=== PATIENT | female | born 1955 | race African-American/Black ===

== ENCOUNTER 2016-05-09 23:26 | Emergency (ER) | payer MEDICARE, MEDICAID ==
[~2016-05-09] VITALS: Ht 165.1 cm; Wt 117.9 kg
[~2016-05-09 23:26] MED LIST: ALPR0.254 PO
[2016-05-10] MEDS ORDERED: IPRATRPIUM/ALBUTEROL 0.5/2.5MG 3 ML NEBU. NEB ONE (00:15)
[2016-05-10] MEDS ORDERED: IBUPROFEN 400 MG TABLET. PO ONE (00:15)
[2016-05-10] MEDS ORDERED: PROAIR HFA8.5 GM INH (00:35)
--- NOTE | 2016-05-10 00:36 | PHYS DOC ---
Past Medical History Past Medical History: Anxiety, Arthritis, Other Additional Past Medical Histor: hx of low potassium Past Surgical History: No Surgical History Alcohol Use: Occasionally Drug Use: None Adult General Chief Complaint Chief Complaint: COUGH HPI HPI Patient is a 60 year old female who presents with dry cough for the past 2 weeks, chills and fever, myalgia, and nighttime shortness of breath for the past 2 days. She also notes bilateral anterior achy chest wall pain with cough for the past 2 days. She has been taking intermittent ibuprofen and Tylenol; her last dose of ibuprofen was yesterday afternoon. She denies palpitations, diaphoresis, exertional symptoms, hemoptysis, leg pain or swelling, abdominal pain, nausea or vomiting. She has had exact same symptoms in the past and diagnosed with bronchitis in which she improved with albuterol inhaler. Review of Systems Review of Systems Constitutional: Has fever and chills [] Eyes: Denies change in visual acuity, redness, or eye pain [] HENT: Denies nasal congestion or sore throat [] Respiratory: Has cough and shortness of breath [] Cardiovascular: No additional information not addressed in HPI [] GI: Denies abdominal pain, nausea, vomiting, bloody stools or diarrhea [] : Denies dysuria or hematuria [] Musculoskeletal: Denies back pain or joint pain [] Integument: Denies rash or skin lesions [] Neurologic: Denies headache, focal weakness or sensory changes [] Endocrine: Denies polyuria or polydipsia [] Current Medications Current Medications Current Medications Medications (Trade) Dose Ordered Sig/Librado Start Time Stop Time Status Last Admin Dose Admin Albuterol/ Ipratropium (Duoneb) 3 ml 1X ONCE 05/10/16 00:15 05/10/16 00:16 DC 05/10/16 00:13 3 ML Ibuprofen (Motrin) 400 mg 1X ONCE 05/10/16 00:15 05/10/16 00:16 DC 05/10/16 00:14 400 MG Allergies Allergies Allergies Coded Allergies Type Severity Reaction Last Updated Verified lisinopril Allergy Severe ANGIOEDEMA 08/07/14 Yes Penicillins Allergy Unknown Rash 07/28/13 Yes Physical Exam Physical Exam Constitutional: Well developed, well nourished, no acute distress, non-toxic appearance. [] HENT: Normocephalic, atraumatic, bilateral external ears normal, oropharynx moist, no oral exudates, nose normal. [] Eyes: PERRLA, EOMI. [] Neck: Normal range of motion, supple, no stridor. [] Cardiovascular:Heart rate regular rhythm, no murmur [] Lungs & Thorax: Minimal wheezing bilaterally with normal respiratory effort, from spastic, [] Abdomen: Bowel sounds normal, soft, no tenderness. [] Skin: Warm, dry, no erythema, no rash. [] Back: No tenderness, no CVA tenderness. [] Extremities: No tenderness, ROM intact, no edema, no palpable cord. [] Neurologic: Alert and oriented X 3, normal motor function, normal sensory function, no focal deficits noted. [] Psychologic: Affect normal, judgement normal, mood normal. [] Current Patient Data Vital Signs Vital Signs Date Time Temp Pulse Resp B/P Pulse Ox O2 Delivery O2 Flow Rate FiO2 05/10/16 00:14 93 Room Air 05/09/16 23:35 98.5 89 22 109/69 98.5 Radiology/Procedures Radiology/Procedures Chest xray as interpreted by me with no acute cardiopulmonary disease process Course & Med Decision Making Course & Med Decision Making Pertinent Labs and Imaging studies reviewed. (See chart for details) She is feeling better after medication. Lungs are clear to auscultation bilaterally. She would like to go home. Will give inhaler for likely viral induced acute bronchitis. Return precautions given. She understands and agrees with plan. Dragon Disclaimer Dragon Disclaimer This electronic medical record was generated, in whole or in part, using a voice recognition dictation system. Departure Departure Impression: Primary Impression: Acute bronchitis Disposition: 01 HOME, SELF-CARE Condition: STABLE Referrals: DIANE COCHRAN MD (PCP) Patient Instructions: Acute Bronchitis, [id number] Additional Instructions: Use albuterol inhaler to help with cough. Follow-up with your primary care doctor within one week. Return for any concerns. Scripts Albuterol Sulfate (Proair Hfa Inhaler)8.5 Gm Hfa.aer.ad2 Puff INH Q4HRS PRN SHORTNESS OF BREATH #1 INHALER Prov:Melany SHERIDAN MD 05/10/16 Problem Qualifiers Primary Impression: Acute bronchitis Bronchitis organism: unspecified organism Qualified Code: J20.9 - Acute bronchitis, unspecified Melany SHERIDAN MD May 10, 2016 00:36
[2016-05-10 00:50] VITALS: BP 89/55
--- NOTE | 2016-05-10 07:32 | RAD ---
2 view CXR: Clinical indications: Cough tonight. Comparison: February 13, 2012. Findings: No acute lung infiltrate or pleural effusion or pulmonary edema or lung mass or pneumothorax is seen. The heart size, pulmonary vasculature, mediastinum and both gerda are unremarkable. The osseous structures appear intact. Impression: No acute radiographic abnormality is seen.
== END 2016-05-10 00:50 | disposition home or self-care (01) ==
LOC: ER 23:26
DX: J20.9 Acute bronchitis, unspecified (principal); R07.89 Other chest pain; M19.90 Unspecified osteoarthritis, unspecified site; Z88.0 Allergy status to penicillin; Z88.8 Allergy status to other drugs, medicaments and biological substances
CPT/HCPCS: 71020; 94250; 94640; 99284; J7620

== ENCOUNTER 2018-05-24 04:50 | Inpatient (IN) | payer OTHER ==
[~2018-05-24] VITALS: Ht 170.2 cm; Wt 112.6 kg
[~2018-05-24 04:50] MED LIST changes: +ALBU2.5V8 INH
[2018-05-24 05:25] LABS: BASO % 1 % (0-3); EOS % 1 % (0-3); HEMATOCRIT 35.5 % (36.0-47.0); HEMOGLOBIN 11.7 g/dL (12.0-15.5); LYMPH # 2.2 x10^3/uL (1.0-4.8); LYMPH % 35 % (24-48); MEAN CORPUSCULAR HEMOGLOBIN 34 pg (25-35); MEAN CORPUSCULAR HGB CONC 33 g/dL (31-37); MEAN CORPUSCULAR VOLUME 104 fL (79-100); MONO # 0.7 x10^3/uL (0.0-1.1); MONO % 11 % (0-9); NEUT # 3.4 x10^3uL (1.8-7.7); NEUT % 53 % (31-73); PLATELET COUNT 188 x10^3/uL (140-400); RED BLOOD COUNT 3.41 x10^6/uL (3.50-5.40); RED CELL DISTRIBUTION WIDTH 17.7 % (11.5-14.5); WHITE BLOOD COUNT 6.3 x10^3/uL (4.0-11.0)
[2018-05-24] MEDS ORDERED: IPRATRPIUM/ALBUTEROL 0.5/2.5MG 3 ML NEBU. NEB ONE (05:30)
[2018-05-24] MEDS ORDERED: methylPREDNISolone SOD SUCC PF 125 MG/2 ML VIAL. IV ONE (05:30)
[2018-05-24] MEDS ORDERED: IV NORMAL SALINE 1000ML BAG 1,000 ML IV SCH (05:30)
[2018-05-24 05:43] LABS: ALBUMIN 2.9 g/dL (3.4-5.0); ALBUMIN/GLOBULIN RATIO 0.7 (1.0-1.7); CALCIUM 8.6 mg/dL (8.5-10.1); CREATININE 0.6 mg/dL (0.6-1.0); MAGNESIUM 1.6 mg/dL (1.8-2.4); POTASSIUM 3.2 mmol/L (3.5-5.1); TOTAL BILIRUBIN 0.3 mg/dL (0.2-1.0); TOTAL PROTEIN 7.1 g/dL (6.4-8.2)
--- NOTE | 2018-05-24 06:00 | PHYS DOC ---
Past Medical History Past Medical History: Anxiety, Arthritis, COPD, Depression, Hypertension, Other Additional Past Medical Histor: hx of low potassium (BRYAN BERNABE Jr., DO) Past Surgical History: (BRYAN BERNABE Jr., DO) Additional Information: / PPD Alcohol Use: Occasionally Drug Use: None (BRYAN BERNABE Jr., DO) Adult General Chief Complaint Chief Complaint: SHORTNESS OF BREATH HPI HPI Patient is a 62-year-old female who presents with complaint of cough, shortness of breath and wheezing that has been going on for the last 4 days. She states that her symptoms are progressively worsening. She reports that she has been taking some Robitussin at home for symptoms but she is just not getting any better. EMS reports that when they had arrived her oxygen saturation had been 88 % on room air. Patient does not wear oxygen at home. EMS had given a breathing treatment and with oxygen her oxygen saturation had come up to 100%. Patient states that she has not been feeling well for quite some time and does admit to some depression but denies any thoughts of harming herself or others. (BRYAN BERNABE Jr. DO) Review of Systems Review of Systems Constitutional: Denies fever or chills [] Respiratory: [place] of cough and shortness of breath [] Cardiovascular: No additional information not addressed in HPI [] GI: Denies abdominal pain, nausea, vomiting or diarrhea [] Musculoskeletal: Denies back pain or joint pain [] Integument: Denies rash or skin lesions [] Neurologic: Denies headache, focal weakness or sensory changes [] All other systems were reviewed and found to be within normal limits, except as documented in this note. (BRYAN BERNABE Jr., DO) Current Medications Current Medications Current Medications Medications (Trade) Dose Ordered Sig/Librado Start Time Stop Time Status Last Admin Dose Admin Albuterol/ Ipratropium (Duoneb) 3 ml 1X ONCE 05/24/18 05:30 05/24/18 05:31 DC 05/24/18 05:35 3 ML Doxycycline Hyclate 100 mg/ Dextrose 100 ml @ 50 mls/hr 1X ONCE 05/24/18 07:30 05/24/18 09:29 DC 05/24/18 09:05 50 MLS/HR Magnesium Sulfate/ Dextrose 100 ml @ 100 mls/hr 1X ONCE 05/24/18 07:30 05/24/18 08:29 DC 05/24/18 07:48 100 MLS/HR Methylprednisolone Sodium Succinate (SOLU-Medrol 125MG VIAL) 125 mg 1X ONCE 05/24/18 05:30 05/24/18 05:31 DC 05/24/18 05:45 125 MG Sodium Chloride 1,000 ml @ 100 mls/hr Q10H 05/24/18 05:30 05/24/18 15:29 05/24/18 05:45 100 MLS/HR (ROLANDO LOGAN MD) Allergies Allergies Allergies Coded Allergies Type Severity Reaction Last Updated Verified lisinopril Allergy Severe ANGIOEDEMA 08/07/14 Yes Penicillins Allergy Unknown Rash 07/28/13 Yes (ROLANDO LOGAN MD) Physical Exam Physical Exam Constitutional: Well developed, well nourished, no acute distress, non-toxic appearance. [] HENT: Normocephalic, atraumatic, bilateral external ears normal, oropharynx moist, no oral exudates, nose normal. [] Eyes: PERRLA, EOMI, conjunctiva normal, no discharge. [] Neck: Normal range of motion, no tenderness, supple. [] Cardiovascular: Regular rate and rhythm[] Lungs & Thorax: Lungs demonstrate coarse rhonchi with some inspiratory and expiratory wheezes bilaterally to auscultation [] Abdomen: Bowel sounds normal, soft, no tenderness. [] Skin: Warm, dry, no erythema, no rash. [] Extremities: No tenderness, no cyanosis, no clubbing, ROM intact. [] Neurologic: Alert and oriented X 3, no focal deficits noted. [] Psychologic: Flattened affect with depressed mood. [] (BRYAN BERNABE Jr. DO) Current Patient Data Vital Signs Vital Signs Date Time Temp Pulse Resp B/P (MAP) Pulse Ox O2 Delivery O2 Flow Rate FiO2 05/24/18 06:34 94 18 99/56 (70) 97 Nasal Cannula 2.0 05/24/18 04:50 98.1 98.1 (ROLANDO LOGAN MD) Lab Values Laboratory Tests Test 05/24/18 05:05 05/24/18 05:53 White Blood Count 6.3 x10^3/uL (4.0-11.0) Red Blood Count 3.41 x10^6/uL (3.50-5.40) L Hemoglobin 11.7 g/dL (12.0-15.5) L Hematocrit 35.5 % (36.0-47.0) L Mean Corpuscular Volume 104 fL (79-100) H Mean Corpuscular Hemoglobin 34 pg (25-35) Mean Corpuscular Hemoglobin Concent 33 g/dL (31-37) Red Cell Distribution Width 17.7 % (11.5-14.5) H Platelet Count 188 x10^3/uL (140-400) Neutrophils (%) (Auto) 53 % (31-73) Lymphocytes (%) (Auto) 35 % (24-48) Monocytes (%) (Auto) 11 % (0-9) H Eosinophils (%) (Auto) 1 % (0-3) Basophils (%) (Auto) 1 % (0-3) Neutrophils # (Auto) 3.4 x10^3uL (1.8-7.7) Lymphocytes # (Auto) 2.2 x10^3/uL (1.0-4.8) Monocytes # (Auto) 0.7 x10^3/uL (0.0-1.1) Eosinophils # (Auto) 0.0 x10^3/uL (0.0-0.7) Basophils # (Auto) 0.0 x10^3/uL (0.0-0.2) Sodium Level 137 mmol/L (136-145) Potassium Level 3.2 mmol/L (3.5-5.1) L Chloride Level 98 mmol/L (98-107) Carbon Dioxide Level 22 mmol/L (21-32) Anion Gap 17 (6-14) H Blood Urea Nitrogen 11 mg/dL (7-20) Creatinine 0.6 mg/dL (0.6-1.0) Estimated GFR (Cockcroft-Gault) 123.0 BUN/Creatinine Ratio 18 (6-20) Glucose Level 84 mg/dL (70-99) Calcium Level 8.6 mg/dL (8.5-10.1) Magnesium Level 1.6 mg/dL (1.8-2.4) L Total Bilirubin 0.3 mg/dL (0.2-1.0) Aspartate Amino Transferase (AST) 116 U/L (15-37) H Alanine Aminotransferase (ALT) 91 U/L (14-59) H Alkaline Phosphatase 119 U/L (46-116) H Creatine Kinase 56 U/L (26-192) NO-Phv-K-Type Natriuretic Peptide 32 pg/mL (0-124) Total Protein 7.1 g/dL (6.4-8.2) Albumin 2.9 g/dL (3.4-5.0) L Albumin/Globulin Ratio 0.7 (1.0-1.7) L Urine Collection Type Unknown Urine Color Yellow Urine Clarity Clear Urine pH 5.0 Urine Specific [place] 1.010 Urine Protein Negative mg/dL (NEG-TRACE) Urine Glucose (UA) Negative mg/dL (NEG) Urine Ketones (Stick) Negative mg/dL (NEG) Urine Blood Negative (NEG) Urine Nitrite Negative (NEG) Urine Bilirubin Negative (NEG) Urine Urobilinogen Dipstick 0.2 mg/dL (0.2 mg/dL) Urine Leukocyte Esterase Negative (NEG) Urine RBC 0 /HPF (0-2) Urine WBC 0 /HPF (0-4) Urine Squamous Epithelial Cells Few /LPF Urine Bacteria 0 /HPF (0-FEW) Laboratory Tests 05/24/18 05:05 Laboratory Tests 05/24/18 05:05 (ROLANDO LOGAN MD) EKG EKG [] Interpretation Time: EKG demonstrates normal sinus rhythm with rate of 92. (BRYAN BERNABE Jr., DO) Radiology/Procedures Radiology/Procedures [] (BRYAN BERNABE Jr., DO) Course & Med Decision Making Course & Med Decision Making Pertinent Labs and Imaging studies reviewed. (See chart for details) Patient moved to room upon arrival was evaluated by ER medical staff after which a workup has been initiated to include blood work, EKG, chest x-ray along with IV fluids and nebulizer treatment. At this time, patient's workup is pending and patient is being signed out to the oncoming ER physician. (BRYAN BERNABE Jr., DO) Course & Med Decision Making - PT HAS HYPOXIA COPD EXACERB CLEAR CXR, CAME IN WITH BEDBUGS D/W RIFFEL STABLE ON NC (ROLANDO LOGAN MD) Dragon Disclaimer Dragon Disclaimer This electronic medical record was generated, in whole or in part, using a voice recognition dictation system. (BRYAN BERNABE Jr., DO) Departure Departure Referrals: DIANE COCHRAN MD (PCP) BRYAN BERNABE Jr. DO May 24, 2018 05:59 ROLANDO LOGAN MD May 24, 2018 09:49
[2018-05-24 06:07] LABS: BILIRUBIN,URINE NEGATIVE (NEG); CLARITY,URINE CLEAR; COLOR,URINE YELLOW; NITRITE,URINE NEGATIVE (NEG); PROTEIN,URINE NEGATIVE (NEG-TRACE); UROBILINOGEN,URINE 0.2 mg/dL (0.2 mg/dL)
[2018-05-24 06:26] LABS: BACTERIA,URINE 0 /HPF (0-FEW); RBC,URINE 0 /HPF (0-2); SQUAMOUS EPITHELIAL CELL,UR FEW /LPF; WBC,URINE 0 /HPF (0-4)
[2018-05-24] MEDS ORDERED: MAGNESIUM SULFATE 1GM 100 ML IV ONE (07:30)
[2018-05-24] MEDS ORDERED: DOXYCYCLINE HYCLATE 100 MG in IV DEXTROSE 5% 100ML 100 ML IV ONE (07:30)
--- NOTE | 2018-05-24 08:34 | RAD ---
Indication:Short of breath. TECHNIQUE:Portable AP chest X-ray COMPARISON:05/09/2016 FINDINGS: Heart is normal in size. Lungs are clear. No pneumothorax or pleural effusion. Visualized bony thorax is within normal limits. IMPRESSION: No acute pulmonary process. Electronically signed by: Kaden Shultz DO (05/24/2018 8:31 AM) [facility]
[2018-05-24] MEDS: IPRATRPIUM/ALBUTEROL 0.5/2.5MG 3 ML NEBU. NEB SCH ×4 (09:27→19:18)
[2018-05-24 11:00] VITALS: BP 113/69
[2018-05-24] MEDS ORDERED: ALPR2TAB5 PO (11:18)
[2018-05-24] MEDS ORDERED: AMLO5TAB10 PO (11:18)
[2018-05-24] MEDS ORDERED: PROAIR IH (11:18)
[2018-05-24] MEDS ORDERED: RANI-348 PO (11:19)
[2018-05-24 11:33] LABS: INFLUENZA A PATIENT NEGATIVE (NEGATIVE); INFLUENZA B PATIENT NEGATIVE (NEGATIVE)
--- NOTE | 2018-05-24 12:32 | NUR ---
The patient, CHRISTY MIRZA, 62 y/o, F admitted by FRANKY ARTEAGA MD, was given written information regarding hospital policies, unit procedures and contact persons. Valuables were checked and pt kept cell phone with her. Oriented to unit and routine.
--- NOTE | 2018-05-24 12:35 | PDOC1 ---
History and Physical Date of Admission Date of Admission DATE: 05/24/18 TIME: 12:30 Identification/Chief Complaint Chief Complaint Shortness of breath Source Source: Chart review, Patient History of Present Illness History of Present Illness 62-year-old female w/ PMHx COPD, anxiety, depression, chronic pain who presents with complaint of cough, shortness of breath and wheezing that has been going on for the last 4 days. She states that her symptoms are progressively worsening. She reports that she has been taking some Robitussin at home for symptoms but she is just not getting any better. EMS reports that when they had arrived her oxygen saturation had been 88% on room air. Patient does not wear oxygen at home. EMS had given a breathing treatment and with oxygen her oxygen saturation had come up to 100%. Patient states that she has not been feeling well for quite some time and does admit to some depression but denies any thoughts of harming herself or others. Things got worse last night after she went to her grandson's birthday green party and drank 4 wine coolers. She tells me she has difficulty navigating stairs. Past Medical History Cardiovascular: No pertinent hx Pulmonary: COPD GI: No pertinent hx Heme/Onc: No pertinent hx Hepatobiliary: No pertinent hx Psych: Anxiety Musculoskeletal: low back pain Rheumatologic: No pertinent hx Infectious disease: No pertinent hx ENT: No pertinent hx Renal/: No pertinent hx Endocrine: No pertinent hx Dermatology: No pertinent hx Past Surgical History Past Surgical History: Tubal Ligation Family History Family History: Asthma, Hypertension Social History Smoke: Quit (03/2018, quit) ALCOHOL: rare Drugs: None Current Problem List Problem List Problems Medical Problems: (1) COPD exacerbation Status: Acute Current Medications Current Medications Current Medications Sodium Chloride 1,000 ml @ 100 mls/hr Q10H IV Last administered on 05/24/18at 05:45; Start 05/24/18 at 05:30; Stop 05/24/18 at 15:29 Albuterol/ Ipratropium (Duoneb) 3 ml 1X ONCE NEB Last administered on at 05:35; Start 05/24/18 at 05:30; Stop 05/24/18 at 05:31; Status DC Methylprednisolone Sodium Succinate (SOLU-Medrol 125MG VIAL) 125 mg 1X ONCE IV Last administered on 05/24/18at 05:45; Start 05/24/18 at 05:30; Stop 05/24/18 at 05:31; Status DC Magnesium Sulfate/ Dextrose 100 ml @ 100 mls/hr 1X ONCE IV Last administered on 05/24/18at 07:48; Start 05/24/18 at 07:30; Stop 05/24/18 at 08:29; Status DC Doxycycline Hyclate 100 mg/ Dextrose 100 ml @ 50 mls/hr 1X ONCE IV Last administered on 05/24/18at 09:05; Start 05/24/18 at 07:30; Stop 05/24/18 at 09:29 ; Status DC Albuterol/ Ipratropium (Duoneb) 3 ml RTQID NEB Last administered on 05/24/18at 09:27; Start 05/24/18 at 08:00; Stop 05/25/18 at 07:59 Active Scripts Active Proair Hfa Inhaler (Albuterol Sulfate) 8.5 Gm Hfa.aer.ad 2 Puff INH Q4HRS PRN Alprazolam 0.25 Mg Tablet 0.25 Mg PO PRN Q6HRS PRN Reported Ranitidine Hcl 75 Mg Tablet 75 Mg PO DAILY Alprazolam 2 Mg Tablet 2 Mg PO BID PRN [Proair] 1 Spr IH DAILY Amlodipine Besylate 5 Mg Tablet 5 Mg PO DAILY Allergies Allergies: Coded Allergies: lisinopril (Verified Allergy, Severe, ANGIOEDEMA, 08/07/14) Penicillins (Verified Allergy, Unknown, Rash, 07/28/13) ROS General: YES: Fatigue, Malaise, Appetite PSYCHOLOGICAL ROS: YES: Anxiety; No: Behavioral Disorder, Concentration difficultie, Decreased libido, Depression, Disorientation, Hallucinations, Hostility, Irritablity, Memory difficulties, Mood Swings, Obsessive thoughts, Physical abuse, Sexual abuse, Sleep disturbances, Suicidal ideation, Other Eyes: No Blurry vision, No Decreased vision, No Double vision, No Dry eyes, No Excessive tearing, No Eye Pain, No Itchy Eyes, No Loss of vision, No Photophobia , No Scotomata, No Uses contacts, No Uses glasses, No Other HEENT: No: Heacaches, Visual Changes, Hearing change, Nasal congestion, Nasal discharge, Oral lesions, Sinus pain, Sore Throat, Epistaxis, Sneezing, Snoring, Tinnitus, Vertigo, Vocal changes, Other ALLERGY AND IMMUNOLOGY: No: Hives, Insect Bite Sensitivity, Itchy/Watery Eyes, Nasal Congestion, Post Nasal Drip, Seasonal Allergies, Other Hematological and Lymphatic: No: Bleeding Problems, Blood Clots, Blood Transfusions, Brusing, Night Sweats, Pallor, Swollen Lymph Nodes, Other ENDOCRINE: No: Breast Changes, Galactorrhea, Hair Pattern Changes, Hot Flashes , Malaise/lethargy, Mood Swings, Palpitations, Polydipsia/polyuria, Skin Changes , Temperature Intolerance, Unexpected Weight Changes, Other Breast: No New/Changing Breast Lumps, No Nipple changes, No Nipple discharge, No Other Respiratory: YES: Cough, Shortness of breath, SOB with excertion, Tachypnea, Wheezing; No: Hemoptysis, Orthopnea, Pleuritic Pain, Sputum Changes, Stridor, Other Cardiovascular: No Chest Pain, No Palpitations, No Orthopnea, No Paroxysmal Noc. Dyspnea, No Edema, No Lt Headedness, No Other Gastrointestinal: Yes Nausea; No Vomiting, No Abdominal Pain, No Diarrhea, No Constipation, No Melena, No Hematochezia, No Other Genitourinary: No Dysuria, No Frequency, No Incontinence, No Hematuria, No Retention, No Discharge, No Urgency, No Pain, No Flank Pain, No Other, No , No , No , No , No , No , No Musculoskeletal: No Gait Disturbance, No Joint Pain, No Joint Stiffness, No Joint Swelling, No Muscle Pain, No Muscular Weakness, No Pain In:, No Swelling In:, No Other Neurological: No Behavorial Changes, No Bowel/Bladder ControlChng, No Confusion , No Dizziness, No Gait Disturbance, No Headaches, No Impaired Coord/balance, No Memory Loss, No Numbness/Tingling, No Seizures, No Speech Problems, No Tremors, No Visual Changes, No Weakness, No Other Skin: No Dry Skin, No Eczema, No Hair Changes, No Lumps, No Mole Changes, No Mottling, No Nail Changes, No Pruritus, No Rash, No Skin Lesion Changes, No Other, No Acne Physical Exam General: Alert, Oriented X3, Cooperative, No acute distress HEENT: Atraumatic, PERRLA, EOMI, Mucous membr. moist/pink Lungs: Clear to auscultation, Normal air movement Heart: S1S2, RRR, no gallops Abdomen: Normal bowel sounds, Soft, No tenderness, No hepatosplenomegaly, No masses Rectal Exam: not examined Extremities: No clubbing, No cyanosis, No edema, Normal pulses, No tenderness/ swelling Skin: No rashes, No breakdown, No significant lesion Neuro: Normal speech, Strength at 5/5 X4 ext, Normal tone, Sensation intact, Cranial nerves 3-12 NL, Reflexes 2+ Psych/Mental Status: Mental status NL, Mood NL Vitals Vitals Vital Signs Date Time Temp Pulse Resp B/P (MAP) Pulse Ox O2 Delivery O2 Flow Rate FiO2 05/24/18 11:00 96.8 101 20 113/69 (84) 96 Nasal Cannula 2.0 96.8 Labs Labs Laboratory Tests Test 05/24/18 05:05 05/24/18 05:53 05/24/18 07:50 White Blood Count 6.3 x10^3/uL (4.0-11.0) Red Blood Count 3.41 x10^6/uL (3.50-5.40) Hemoglobin 11.7 g/dL (12.0-15.5) Hematocrit 35.5 % (36.0-47.0) Mean Corpuscular Volume 104 fL (79-100) Mean Corpuscular Hemoglobin 34 pg (25-35) Mean Corpuscular Hemoglobin Concent 33 g/dL (31-37) Red Cell Distribution Width 17.7 % (11.5-14.5) Platelet Count 188 x10^3/uL (140-400) Neutrophils (%) (Auto) 53 % (31-73) Lymphocytes (%) (Auto) 35 % (24-48) Monocytes (%) (Auto) 11 % (0-9) Eosinophils (%) (Auto) 1 % (0-3) Basophils (%) (Auto) 1 % (0-3) Neutrophils # (Auto) 3.4 x10^3uL (1.8-7.7) Lymphocytes # (Auto) 2.2 x10^3/uL (1.0-4.8) Monocytes # (Auto) 0.7 x10^3/uL (0.0-1.1) Eosinophils # (Auto) 0.0 x10^3/uL (0.0-0.7) Basophils # (Auto) 0.0 x10^3/uL (0.0-0.2) Sodium Level 137 mmol/L (136-145) Potassium Level 3.2 mmol/L (3.5-5.1) Chloride Level 98 mmol/L (98-107) Carbon Dioxide Level 22 mmol/L (21-32) Anion Gap 17 (6-14) Blood Urea Nitrogen 11 mg/dL (7-20) Creatinine 0.6 mg/dL (0.6-1.0) Estimated GFR (Cockcroft-Gault) 123.0 BUN/Creatinine Ratio 18 (6-20) Glucose Level 84 mg/dL (70-99) Calcium Level 8.6 mg/dL (8.5-10.1) Magnesium Level 1.6 mg/dL (1.8-2.4) Total Bilirubin 0.3 mg/dL (0.2-1.0) Aspartate Amino Transf (AST/SGOT) 116 U/L (15-37) Alanine Aminotransferase (ALT/SGPT) 91 U/L (14-59) Alkaline Phosphatase 119 U/L (46-116) Creatine Kinase 56 U/L (26-192) TE-Wpr-L-Type Natriuretic Peptide 32 pg/mL (0-124) Total Protein 7.1 g/dL (6.4-8.2) Albumin 2.9 g/dL (3.4-5.0) Albumin/Globulin Ratio 0.7 (1.0-1.7) Urine Collection Type Unknown Urine Color Yellow Urine Clarity Clear Urine pH 5.0 Urine Specific [place] 1.010 Urine Protein Negative mg/dL (NEG-TRACE) Urine Glucose (UA) Negative mg/dL (NEG) Urine Ketones (Stick) Negative mg/dL (NEG) Urine Blood Negative (NEG) Urine Nitrite Negative (NEG) Urine Bilirubin Negative (NEG) Urine Urobilinogen Dipstick 0.2 mg/dL (0.2 mg/dL) Urine Leukocyte Esterase Negative (NEG) Urine RBC 0 /HPF (0-2) Urine WBC 0 /HPF (0-4) Urine Squamous Epithelial Cells Few /LPF Urine Bacteria 0 /HPF (0-FEW) Influenza Type A Antigen Negative (NEGATIVE) Influenza Type B Antigen Negative (NEGATIVE) Laboratory Tests Test 05/24/18 05:05 05/24/18 05:53 05/24/18 07:50 White Blood Count 6.3 x10^3/uL (4.0-11.0) Red Blood Count 3.41 x10^6/uL (3.50-5.40) Hemoglobin 11.7 g/dL (12.0-15.5) Hematocrit 35.5 % (36.0-47.0) Mean Corpuscular Volume 104 fL (79-100) Mean Corpuscular Hemoglobin 34 pg (25-35) Mean Corpuscular Hemoglobin Concent 33 g/dL (31-37) Red Cell Distribution Width 17.7 % (11.5-14.5) Platelet Count 188 x10^3/uL (140-400) Neutrophils (%) (Auto) 53 % (31-73) Lymphocytes (%) (Auto) 35 % (24-48) Monocytes (%) (Auto) 11 % (0-9) Eosinophils (%) (Auto) 1 % (0-3) Basophils (%) (Auto) 1 % (0-3) Neutrophils # (Auto) 3.4 x10^3uL (1.8-7.7) Lymphocytes # (Auto) 2.2 x10^3/uL (1.0-4.8) Monocytes # (Auto) 0.7 x10^3/uL (0.0-1.1) Eosinophils # (Auto) 0.0 x10^3/uL (0.0-0.7) Basophils # (Auto) 0.0 x10^3/uL (0.0-0.2) Sodium Level 137 mmol/L (136-145) Potassium Level 3.2 mmol/L (3.5-5.1) Chloride Level 98 mmol/L (98-107) Carbon Dioxide Level 22 mmol/L (21-32) Anion Gap 17 (6-14) Blood Urea Nitrogen 11 mg/dL (7-20) Creatinine 0.6 mg/dL (0.6-1.0) Estimated GFR (Cockcroft-Gault) 123.0 BUN/Creatinine Ratio 18 (6-20) Glucose Level 84 mg/dL (70-99) Calcium Level 8.6 mg/dL (8.5-10.1) Magnesium Level 1.6 mg/dL (1.8-2.4) Total Bilirubin 0.3 mg/dL (0.2-1.0) Aspartate Amino Transf (AST/SGOT) 116 U/L (15-37) Alanine Aminotransferase (ALT/SGPT) 91 U/L (14-59) Alkaline Phosphatase 119 U/L (46-116) Creatine Kinase 56 U/L (26-192) AH-Bin-D-Type Natriuretic Peptide 32 pg/mL (0-124) Total Protein 7.1 g/dL (6.4-8.2) Albumin 2.9 g/dL (3.4-5.0) Albumin/Globulin Ratio 0.7 (1.0-1.7) Urine Collection Type Unknown Urine Color Yellow Urine Clarity Clear Urine pH 5.0 Urine Specific [place] 1.010 Urine Protein Negative mg/dL (NEG-TRACE) Urine Glucose (UA) Negative mg/dL (NEG) Urine Ketones (Stick) Negative mg/dL (NEG) Urine Blood Negative (NEG) Urine Nitrite Negative (NEG) Urine Bilirubin Negative (NEG) Urine Urobilinogen Dipstick 0.2 mg/dL (0.2 mg/dL) Urine Leukocyte Esterase Negative (NEG) Urine RBC 0 /HPF (0-2) Urine WBC 0 /HPF (0-4) Urine Squamous Epithelial Cells Few /LPF Urine Bacteria 0 /HPF (0-FEW) Influenza Type A Antigen Negative (NEGATIVE) Influenza Type B Antigen Negative (NEGATIVE) Images Images CXR - No acute pulmonary process. VTE Prophylaxis Ordered VTE Prophylaxis Devices: No VTE Pharmacological Prophylaxi: Yes Assessment/Plan Assessment/Plan A/P: COPD exacerbation - initially starting to improve with nebs, will continue Hypoxia - improved O2 sats after nebulizer treatments Transaminitis - likely related to drinking last night. IVF for now Anxiety - cont home xanax Difficulty with ambulation - PT to see Smoker in remission - cont positive counseling Depression - cont home meds Chronic pain - heating pads, lidocaine patch if necessary Hypokalemia- replace Hypomagnesemia - replace IV Anemia - unknown etiology, check iron FEN - General diet PPX - lovenox FULL CODE Inpatient for acute COPD exacerbation, likely 2 midnights FRANKY ARTEAGA MD May 24, 2018 12:35
[2018-05-24] MEDS ORDERED: IBUP-577 PO (13:12)
[2018-05-24] MEDS ORDERED: FLUT1DIS3 IH (13:12)
[2018-05-24] MEDS ORDERED: TIOT18CA IH (13:12)
[2018-05-24] MEDS ORDERED: ALBUTEROL SULFATE 2.5 MG/3 ML NEBU. INH PRN (13:15)
[2018-05-24] MEDS: ALPRAZolam 1 MG TABLET PO PRN ×2 (13:21→20:45)
[2018-05-24] MEDS: amLODIPine BESYLATE 5 MG TABLET PO SCH (13:22)
[2018-05-24] MEDS ORDERED: POTASSIUM CHLORIDE 20 MEQ TABLET.ER. PO ONE (14:15)
--- NOTE | 2018-05-24 14:48 | EKG ---
[facility] [address] [place] [address] Test Date: 2018-05-24 Test Time: 05:44:24 Pat Name: CHRISTY MIRZA Department: Room: 506 Gender: F Gate Attendant: : 1955 Requested By: BRYAN BERNABE Order Number: [id number] Reading MD: Chidi Abarca Measurements Intervals [place] Rate: 92 P: -56 MI: 120 QRS: 54 QRSD: 80 T: 49 QT: 364 QTc: 455 Interpretive Statements SINUS RHYTHM NO SPECIFIC ECG ABNORMALITIES Electronically Signed On 06-03-2018 10:35:45 DOCUMENTATION MANAGER by Chidi Abarca
[2018-05-24 15:00] VITALS: BP 104/70
[2018-05-24] MEDS: ENOXAPARIN 40 MG/0.4 ML SYRINGE. SQ SCH (15:00)
[2018-05-24 19:00] VITALS: BP 144/86
[2018-05-24] MEDS: BUDESONIDE 0.5 MG/2 ML NEBU. NEB SCH (19:18)
[2018-05-24] MEDS: FAMOTIDINE 20 MG TABLET. PO SCH (20:36)
[2018-05-24 23:00] VITALS: BP_SYST 106; BP_SYST 119; BP_DIAS 38; BP_DIAS 63
[2018-05-25 03:00] VITALS: BP 108/72
[2018-05-25 07:00] VITALS: BP 141/82
[2018-05-25] MEDS: BUDESONIDE 0.5 MG/2 ML NEBU. NEB SCH ×2 (07:26→19:04)
[2018-05-25] MEDS: IPRATRPIUM/ALBUTEROL 0.5/2.5MG 3 ML NEBU. NEB SCH ×4 (07:26→19:04)
[2018-05-25] MEDS: FAMOTIDINE 20 MG TABLET. PO SCH ×2 (08:49→21:53)
[2018-05-25] MEDS: amLODIPine BESYLATE 5 MG TABLET PO SCH (08:49)
[2018-05-25] MEDS: ALPRAZolam 1 MG TABLET PO PRN ×2 (08:50→22:03)
[2018-05-25] MEDS ORDERED: PROAIR IH SCH (09:00)
[2018-05-25] MEDS: ENOXAPARIN 40 MG/0.4 ML SYRINGE. SQ SCH (13:40)
--- NOTE | 2018-05-25 14:19 | PDOC ---
PROGRESS NOTES Chief Complaint Chief Complaint acute COPD exacerbation - improved, Hypoxia - improved O2 sats after nebulizer treatments Transaminitis - likely related to drinking last night. IVF for now Anxiety - cont home xanax Difficulty with ambulation - PT to see Smoker in remission - cont positive counseling Depression - cont home meds Chronic pain - heating pads, lidocaine patch if necessary Hypokalemia- replace Hypomagnesemia - replace IV Anemia - unknown etiology, check iron History of Present Illness History of Present Illness consult pulm PT and OT weakness check TSH, likely acquired, refer to CP rehab Vitals Vitals Vital Signs Date Time Temp Pulse Resp B/P (MAP) Pulse Ox O2 Delivery O2 Flow Rate FiO2 05/25/18 11:35 Nasal Cannula 2.0 05/25/18 08:49 85 108/72 05/25/18 07:26 95 05/25/18 07:00 97.8 20 97.8 Physical Exam General: Alert, Oriented X3, Cooperative, No acute distress Heart: Regular rate, Other Lungs: Other (rales, low vol, no wheeze, good effort) Abdomen: Normal bowel sounds, Soft, No tenderness, No hepatosplenomegaly, No masses Extremities: No clubbing, No cyanosis, No edema, Normal pulses, No tenderness/ swelling Skin: No rashes, No breakdown, No significant lesion Labs LABS Laboratory Tests Test 05/24/18 15:15 Iron Level 60 ug/dL (50-170) Total Iron Binding Capacity 254 ug/dL (250-450) Iron Saturation 24 % (15-34) Assessment and Plan Assessmemt and Plan Problems Medical Problems: (1) COPD exacerbation Status: Acute Comment Review of Relevant I have reviewed the following items bartolo (where applicable) has been applied. Labs Laboratory Tests Test 05/24/18 05:05 05/24/18 05:53 05/24/18 07:50 05/24/18 15:15 White Blood Count 6.3 x10^3/uL (4.0-11.0) Red Blood Count 3.41 x10^6/uL (3.50-5.40) Hemoglobin 11.7 g/dL (12.0-15.5) Hematocrit 35.5 % (36.0-47.0) Mean Corpuscular Volume 104 fL (79-100) Mean Corpuscular Hemoglobin 34 pg (25-35) Mean Corpuscular Hemoglobin Concent 33 g/dL (31-37) Red Cell Distribution Width 17.7 % (11.5-14.5) Platelet Count 188 x10^3/uL (140-400) Neutrophils (%) (Auto) 53 % (31-73) Lymphocytes (%) (Auto) 35 % (24-48) Monocytes (%) (Auto) 11 % (0-9) Eosinophils (%) (Auto) 1 % (0-3) Basophils (%) (Auto) 1 % (0-3) Neutrophils # (Auto) 3.4 x10^3uL (1.8-7.7) Lymphocytes # (Auto) 2.2 x10^3/uL (1.0-4.8) Monocytes # (Auto) 0.7 x10^3/uL (0.0-1.1) Eosinophils # (Auto) 0.0 x10^3/uL (0.0-0.7) Basophils # (Auto) 0.0 x10^3/uL (0.0-0.2) Sodium Level 137 mmol/L (136-145) Potassium Level 3.2 mmol/L (3.5-5.1) Chloride Level 98 mmol/L (98-107) Carbon Dioxide Level 22 mmol/L (21-32) Anion Gap 17 (6-14) Blood Urea Nitrogen 11 mg/dL (7-20) Creatinine 0.6 mg/dL (0.6-1.0) Estimated GFR (Cockcroft-Gault) 123.0 BUN/Creatinine Ratio 18 (6-20) Glucose Level 84 mg/dL (70-99) Calcium Level 8.6 mg/dL (8.5-10.1) Magnesium Level 1.6 mg/dL (1.8-2.4) Total Bilirubin 0.3 mg/dL (0.2-1.0) Aspartate Amino Transf (AST/SGOT) 116 U/L (15-37) Alanine Aminotransferase (ALT/SGPT) 91 U/L (14-59) Alkaline Phosphatase 119 U/L (46-116) Creatine Kinase 56 U/L (26-192) XU-Bzk-V-Type Natriuretic Peptide 32 pg/mL (0-124) Total Protein 7.1 g/dL (6.4-8.2) Albumin 2.9 g/dL (3.4-5.0) Albumin/Globulin Ratio 0.7 (1.0-1.7) Urine Collection Type Unknown Urine Color Yellow Urine Clarity Clear Urine pH 5.0 Urine Specific [place] 1.010 Urine Protein Negative mg/dL (NEG-TRACE) Urine Glucose (UA) Negative mg/dL (NEG) Urine Ketones (Stick) Negative mg/dL (NEG) Urine Blood Negative (NEG) Urine Nitrite Negative (NEG) Urine Bilirubin Negative (NEG) Urine Urobilinogen Dipstick 0.2 mg/dL (0.2 mg/dL) Urine Leukocyte Esterase Negative (NEG) Urine RBC 0 /HPF (0-2) Urine WBC 0 /HPF (0-4) Urine Squamous Epithelial Cells Few /LPF Urine Bacteria 0 /HPF (0-FEW) Influenza Type A Antigen Negative (NEGATIVE) Influenza Type B Antigen Negative (NEGATIVE) Iron Level 60 ug/dL (50-170) Total Iron Binding Capacity 254 ug/dL (250-450) Iron Saturation 24 % (15-34) Laboratory Tests Test 05/24/18 15:15 Iron Level 60 ug/dL (50-170) Total Iron Binding Capacity 254 ug/dL (250-450) Iron Saturation 24 % (15-34) Microbiology 05/24/18 Blood Culture - Final, Complete Medications Current Medications Sodium Chloride 1,000 ml @ 100 mls/hr Q10H IV Last administered on 05/24/18at 05:45; Start 05/24/18 at 05:30; Stop 05/24/18 at 15:29; Status DC Albuterol/ Ipratropium (Duoneb) 3 ml 1X ONCE NEB Last administered on at 05:35; Start 05/24/18 at 05:30; Stop 05/24/18 at 05:31; Status DC Methylprednisolone Sodium Succinate (SOLU-Medrol 125MG VIAL) 125 mg 1X ONCE IV Last administered on 05/24/18at 05:45; Start 05/24/18 at 05:30; Stop 05/24/18 at 05:31; Status DC Magnesium Sulfate/ Dextrose 100 ml @ 100 mls/hr 1X ONCE IV Last administered on 05/24/18at 07:48; Start 05/24/18 at 07:30; Stop 05/24/18 at 08:29; Status DC Doxycycline Hyclate 100 mg/ Dextrose 100 ml @ 50 mls/hr 1X ONCE IV Last administered on 05/24/18at 09:05; Start 05/24/18 at 07:30; Stop 05/24/18 at 09:29 ; Status DC Albuterol/ Ipratropium (Duoneb) 3 ml RTQID NEB Last administered on 05/24/18at 09:27; Start 05/24/18 at 08:00; Stop 05/24/18 at 13:17; Status DC Albuterol Sulfate (Ventolin Neb Soln) 2.5 mg Q4HRS PRN INH SHORTNESS OF BREATH ; Start 05/24/18 at 13:15 Alprazolam (Xanax) 2 mg PRN BID PRN PO ANXIETY / AGITATION Last administered on 05/25/18at 08:50; Start 05/24/18 at 13:15 Amlodipine Besylate (Norvasc) 5 mg DAILY PO Last administered on 05/25/18 08: 49; Start 05/24/18 at 14:00 Famotidine (Pepcid) 20 mg BID PO Last administered on 05/25/18at 08:49; Start at 21:00 Budesonide (Pulmicort) 0.5 mg RTBID NEB Last administered on 05/25/18 07:26; Start 05/24/18 at 20:00 Albuterol/ Ipratropium (Duoneb) 3 ml RTQID NEB Last administered on 05/25/18at 11:35; Start 05/24/18 at 16:00 Non-Formulary Medication ([Proair] ) 1 spr DAILY IH ; Start 05/25/18 at 09:00; Status UNV Enoxaparin Sodium (Lovenox 40mg Syringe) 40 mg Q24H SQ ; Start 05/24/18 at 15:00 Potassium Chloride (Klor-Con) 40 meq 1X ONCE PO Last administered on at 17:51; Start 05/24/18 at 14:15; Stop 05/24/18 at 14:16; Status DC Active Scripts Active Proair Hfa Inhaler (Albuterol Sulfate) 8.5 Gm Hfa.aer.ad 2 Puff INH Q4HRS PRN Alprazolam 0.25 Mg Tablet 0.25 Mg PO PRN Q6HRS PRN Reported Ibu (Ibuprofen) 800 Mg Tablet 800 Mg PO BID PRN Advair 250-50 Diskus (Fluticasone/Salmeterol) 1 Each Disk.w.dev 1 Puff IH DAILY Spiriva (Tiotropium [place]) 18 Mcg Cap.w.dev 18 Mcg IH DAILY Ranitidine Hcl 75 Mg Tablet 75 Mg PO DAILY Alprazolam 2 Mg Tablet 2 Mg PO BID PRN [Proair] 1 Spr IH DAILY Amlodipine Besylate 5 Mg Tablet 5 Mg PO DAILY Vitals/I & O Vital Sign - Last 24 Hours 05/24/18 05/24/18 05/24/18 05/24/18 15:00 16:22 16:26 19:00 Temp 98.8 98.6 98.8 98.6 Pulse 119 109 Resp 20 20 B/P (MAP) 104/70 (81) 144/86 (105) Pulse Ox 92 89 98 O2 Delivery Nasal Cannula Room Air Nasal Cannula Nasal Cannula O2 Flow Rate 2.0 2.0 2.0 05/24/18 05/24/18 05/24/18 05/24/18 19:19 19:20 20:00 23:00 Temp 98.6 98.6 Pulse 94 Resp 20 B/P (MAP) 106/63 (77) Pulse Ox 96 O2 Delivery Room Air Room Air Nasal Cannula Nasal Cannula O2 Flow Rate 2.0 2.0 05/25/18 05/25/18 05/25/18 05/25/18 03:00 07:00 07:26 08:00 Temp 97.5 97.8 97.5 97.8 Pulse 85 98 Resp 20 20 B/P (MAP) 108/72 (84) 141/82 (101) Pulse Ox 97 96 95 O2 Delivery Nasal Cannula Nasal Cannula Nasal Cannula Nasal Cannula O2 Flow Rate 2.0 2.0 2.0 2.0 05/25/18 05/25/18 08:49 11:35 Pulse 85 B/P (MAP) 108/72 O2 Delivery Nasal Cannula O2 Flow Rate 2.0 Intake and Output 05/24/18 05/24/18 05/25/18 15:00 23:00 07:00 Intake Total 460 ml 300 ml 0 ml Balance 460 ml 300 ml 0 ml SILVERIO DUMONT MD May 25, 2018 14:19
[2018-05-25 15:00] VITALS: BP 124/76
[2018-05-25] MEDS ORDERED: MAGNESIUM SULFATE 4GM 100 ML IV ONE (15:00)
[2018-05-25] MEDS: VITAMIN B12,B9,B6 COMPLEX 1 TABLET. PO SCH (15:58)
[2018-05-25] MEDS ORDERED: VANCOMYCIN 2 GM in IV NORMAL SALINE 500ML BAG 500 ML IV ONE (16:30)
[2018-05-25] MEDS: AZTREONAM IV Push 1 GM VIAL. IVP SCH ×2 (16:52→21:54)
[2018-05-25] MEDS: VANCOMYCIN PER PHARMACY MC PRN (18:47)
--- NOTE | 2018-05-25 18:50 | NUR ---
Pharmacy Vancomycin Dosing Note S:Consulted to monitor and dose vancomycin started 05/25/18. O:CHRISTY MIRZA is a 62 year old F with Bacteremia . Height: 5 feet, 7 inches Weight: 113.4 kg [place] Body Weight: 61.60 Adjusted Body Weight: 82.32 Dosing Weight: Actual Other Antibiotics: Aztreonam 1g q8h LABS: Last BUN: 11 Last Creatinine: 0.6 Creatinine Clearance: >100 mL/min Last WBC: 6.3 Last Procalcitonin: Tmax (past 24 hours): 98.1 Microbiology: Blood: GPC in clusters in 2/2 bottles I/O: 760/- Last dose given 05/25/18 at 1653 Vancomycin Dosing: Loading Dose: 2000 mg x1 Dosing Weight: Actual Target Trough: 15-20 A: Based on: weight and renal function P: 1. Begin Vancomycin 1500 mg IV q12h 2. Follow up Trough level on 05/27/18 at 0430 3. Pharmacy will continue to monitor, follow and adjust therapy as needed. Any Martino [facility], 05/25/18 [id number]
[2018-05-25 19:00] VITALS: BP 105/56
[2018-05-25] MEDS: oxyCODONE/APAP 5/325 1 TAB TABLET PO PRN (21:55)
[2018-05-25 23:00] VITALS: BP 100/59
[2018-05-26 03:00] VITALS: BP 101/68
[2018-05-26] MEDS ORDERED: VANCOMYCIN 1.5 GM in IV NORMAL SALINE 500ML BAG 500 ML IV SCH (05:00)
[2018-05-26] MEDS: AZTREONAM IV Push 1 GM VIAL. IVP SCH ×2 (06:18→13:57)
[2018-05-26 06:39] LABS: ALBUMIN 2.9 g/dL (3.4-5.0); ALBUMIN/GLOBULIN RATIO 0.7 (1.0-1.7); CALCIUM 8.2 mg/dL (8.5-10.1); CREATININE 0.7 mg/dL (0.6-1.0); GFR 102.9; POTASSIUM 4.1 mmol/L (3.5-5.1); TOTAL BILIRUBIN 0.3 mg/dL (0.2-1.0); TOTAL PROTEIN 6.9 g/dL (6.4-8.2)
[2018-05-26 06:57] LABS: BASO % 0 % (0-3); EOS % 0 % (0-3); HEMATOCRIT 35.1 % (36.0-47.0); HEMOGLOBIN 11.3 g/dL (12.0-15.5); LYMPH # 1.3 x10^3/uL (1.0-4.8); LYMPH % 25 % (24-48); MEAN CORPUSCULAR HEMOGLOBIN 34 pg (25-35); MEAN CORPUSCULAR HGB CONC 32 g/dL (31-37); MEAN CORPUSCULAR VOLUME 105 fL (79-100); MONO # 0.5 x10^3/uL (0.0-1.1); MONO % 10 % (0-9); NEUT # 3.5 x10^3uL (1.8-7.7); NEUT % 65 % (31-73); PLATELET COUNT 176 x10^3/uL (140-400); RED BLOOD COUNT 3.34 x10^6/uL (3.50-5.40); RED CELL DISTRIBUTION WIDTH 18.5 % (11.5-14.5); WHITE BLOOD COUNT 5.4 x10^3/uL (4.0-11.0)
[2018-05-26 07:00] VITALS: BP 115/69
[2018-05-26] MEDS: IPRATRPIUM/ALBUTEROL 0.5/2.5MG 3 ML NEBU. NEB SCH ×3 (07:02→15:35)
[2018-05-26] MEDS: BUDESONIDE 0.5 MG/2 ML NEBU. NEB SCH (07:02)
--- NOTE | 2018-05-26 08:18 | NUR ---
SW following pt for anticipated dc needs. Chart reviewed. Pt lives at home alone and currently on 2L o2. PT/OT pending. SW will await for PT/OT recommendation to evaluate skilled needs. Will continue to follow. Addendum: 05/26/18 at 1615 by MAGALI JENNINGS SW SW following. PT/OT recommends home. Spoke with RN and pt is discharging home with self care today.
[2018-05-26] MEDS: VITAMIN B12,B9,B6 COMPLEX 1 TABLET. PO SCH (08:37)
[2018-05-26] MEDS: FAMOTIDINE 20 MG TABLET. PO SCH (08:37)
[2018-05-26] MEDS: amLODIPine BESYLATE 5 MG TABLET PO SCH (08:38)
[2018-05-26] MEDS: ALPRAZolam 1 MG TABLET PO PRN (09:00)
--- NOTE | 2018-05-26 10:35 | CONS ---
DATE OF CONSULTATION: ATTENDING PHYSICIAN: Dr. Apodaca. REASON FOR CONSULTATION: Dyspnea, cough. HISTORY OF PRESENT ILLNESS: The patient is a 62-year-old who smoked for about 12 years. She quit a few months ago. The patient presented to the hospital with cough. She said she had some cold-like symptoms. She has some shortness of breath and wheezing. The patient's symptoms began to get worse. As a result, she was hospitalized. She had saturation of 88% on room air. The patient was also having wheezing. No headaches, no nausea, vomiting, no diarrhea, no dysuria. No focal weakness. No leg edema. Chest x-ray did not reveal any definite infiltrates. PAST MEDICAL HISTORY: Significant for questionable COPD, smoked for 12 years. PAST SURGICAL HISTORY: Tubal ligation. FAMILY HISTORY: Asthma and hypertension. SOCIAL HISTORY: Quit tobacco few months ago. Before that, smoked for 12 years. ALLERGIES: PENICILLIN AND LISINOPRIL. CURRENT MEDICATIONS: Reviewed including vancomycin and aztreonam. REVIEW OF SYSTEMS: A 12-point system obtained. Pertinent positives discussed in my history of present illness, otherwise noncontributory. All systems that were negative were reviewed as well. PHYSICAL EXAMINATION: VITAL SIGNS: Reviewed, pulse ox 98-100% on 2 liters, afebrile. HEENT: Sclerae nonicteric. NECK: Supple. LUNGS: Clear. CARDIOVASCULAR: Regular rate and rhythm. ABDOMEN: Soft, nontender. EXTREMITIES: With no pitting edema. LABORATORY DATA: Reviewed. White cell count 5.4, hemoglobin 11.3, platelets are at 176. BUN 10 and creatinine 0.7. IMPRESSION: 1. Dyspnea secondary to acute bronchitis and possible underlying mild chronic obstructive pulmonary disease with exacerbation. 2. No definite consolidation seen on the chest x-ray. RECOMMENDATIONS: 1. Clinically, doing well, can wean off oxygen. 2. Continue bronchodilators. 3. Antibiotics can be switched to p.o. in the next 24 hours if clinically remains stable. 4. DVT prophylaxis with Lovenox. 5. Possible discharge in 24 hours. ELVIN PEDRAZA MD DR: NAVIN/stephanie JOB#: [id number] / [id number]
[2018-05-26 11:00] VITALS: BP 132/82
[2018-05-26] MEDS: oxyCODONE/APAP 5/325 1 TAB TABLET PO PRN (11:10)
[2018-05-26] MEDS: VANCOMYCIN PER PHARMACY MC PRN (11:55)
[2018-05-26] MEDS ORDERED: ALBU2.5V8 INH (12:01)
[2018-05-26] MEDS ORDERED: TIOT18CA IH (12:01)
[2018-05-26] MEDS ORDERED: FLUT1DIS3 IH (12:01)
--- NOTE | 2018-05-26 12:04 | PDOC3 ---
Discharge Summary Visit Information Date of Admission: May 24, 2018 Date of Discharge: May 26, 2018 Admitting Diagnosis Comment: acute COPD exacerbation - improved, Bronchitis-no pneumonia on chest x-ray Hypoxia - improved O2 sats after nebulizer treatments Transaminitis - likely related to drinking last night. IVF for now Anxiety - cont home xanax Difficulty with ambulation - PT to see Smoker in remission - cont positive counseling Depression - cont home meds Chronic pain - heating pads, lidocaine patch if necessary Hypokalemia- replace Hypomagnesemia - replace IV Anemia - unknown etiology, check iron Final Diagnosis Problems Medical Problems: (1) COPD exacerbation Status: Acute Brief Hospital Course Allergies Allergies Coded Allergies Type Severity Reaction Last Updated Verified lisinopril Allergy Severe ANGIOEDEMA 08/07/14 Yes Penicillins Allergy Unknown Rash 07/28/13 Yes Vital Signs Vital Signs Date Time Temp Pulse Resp B/P (MAP) Pulse Ox O2 Delivery O2 Flow Rate FiO2 05/26/18 11:25 Room Air 05/26/18 11:10 100 2.0 05/26/18 08:38 80 115/69 05/26/18 07:00 98.0 20 98.0 Lab Results Laboratory Tests Test 05/24/18 15:15 05/26/18 05:25 Iron Level 60 ug/dL (50-170) Total Iron Binding Capacity 254 ug/dL (250-450) Iron Saturation 24 % (15-34) White Blood Count 5.4 x10^3/uL (4.0-11.0) Red Blood Count 3.34 x10^6/uL (3.50-5.40) Hemoglobin 11.3 g/dL (12.0-15.5) Hematocrit 35.1 % (36.0-47.0) Mean Corpuscular Volume 105 fL (79-100) Mean Corpuscular Hemoglobin 34 pg (25-35) Mean Corpuscular Hemoglobin Concent 32 g/dL (31-37) Red Cell Distribution Width 18.5 % (11.5-14.5) Platelet Count 176 x10^3/uL (140-400) Neutrophils (%) (Auto) 65 % (31-73) Lymphocytes (%) (Auto) 25 % (24-48) Monocytes (%) (Auto) 10 % (0-9) Eosinophils (%) (Auto) 0 % (0-3) Basophils (%) (Auto) 0 % (0-3) Neutrophils # (Auto) 3.5 x10^3uL (1.8-7.7) Lymphocytes # (Auto) 1.3 x10^3/uL (1.0-4.8) Monocytes # (Auto) 0.5 x10^3/uL (0.0-1.1) Eosinophils # (Auto) 0.0 x10^3/uL (0.0-0.7) Basophils # (Auto) 0.0 x10^3/uL (0.0-0.2) Sodium Level 143 mmol/L (136-145) Potassium Level 4.1 mmol/L (3.5-5.1) Chloride Level 106 mmol/L (98-107) Carbon Dioxide Level 27 mmol/L (21-32) Anion Gap 10 (6-14) Blood Urea Nitrogen 10 mg/dL (7-20) Creatinine 0.7 mg/dL (0.6-1.0) Estimated GFR (Cockcroft-Gault) 102.9 BUN/Creatinine Ratio 14 (6-20) Glucose Level 94 mg/dL (70-99) Calcium Level 8.2 mg/dL (8.5-10.1) Total Bilirubin 0.3 mg/dL (0.2-1.0) Aspartate Amino Transf (AST/SGOT) 64 U/L (15-37) Alanine Aminotransferase (ALT/SGPT) 77 U/L (14-59) Alkaline Phosphatase 98 U/L (46-116) Total Protein 6.9 g/dL (6.4-8.2) Albumin 2.9 g/dL (3.4-5.0) Albumin/Globulin Ratio 0.7 (1.0-1.7) Vitamin B12 Level 1027 pg/mL (247-911) Laboratory Tests Test 05/26/18 05:25 White Blood Count 5.4 x10^3/uL (4.0-11.0) Red Blood Count 3.34 x10^6/uL (3.50-5.40) Hemoglobin 11.3 g/dL (12.0-15.5) Hematocrit 35.1 % (36.0-47.0) Mean Corpuscular Volume 105 fL (79-100) Mean Corpuscular Hemoglobin 34 pg (25-35) Mean Corpuscular Hemoglobin Concent 32 g/dL (31-37) Red Cell Distribution Width 18.5 % (11.5-14.5) Platelet Count 176 x10^3/uL (140-400) Neutrophils (%) (Auto) 65 % (31-73) Lymphocytes (%) (Auto) 25 % (24-48) Monocytes (%) (Auto) 10 % (0-9) Eosinophils (%) (Auto) 0 % (0-3) Basophils (%) (Auto) 0 % (0-3) Neutrophils # (Auto) 3.5 x10^3uL (1.8-7.7) Lymphocytes # (Auto) 1.3 x10^3/uL (1.0-4.8) Monocytes # (Auto) 0.5 x10^3/uL (0.0-1.1) Eosinophils # (Auto) 0.0 x10^3/uL (0.0-0.7) Basophils # (Auto) 0.0 x10^3/uL (0.0-0.2) Sodium Level 143 mmol/L (136-145) Potassium Level 4.1 mmol/L (3.5-5.1) Chloride Level 106 mmol/L (98-107) Carbon Dioxide Level 27 mmol/L (21-32) Anion Gap 10 (6-14) Blood Urea Nitrogen 10 mg/dL (7-20) Creatinine 0.7 mg/dL (0.6-1.0) Estimated GFR (Cockcroft-Gault) 102.9 BUN/Creatinine Ratio 14 (6-20) Glucose Level 94 mg/dL (70-99) Calcium Level 8.2 mg/dL (8.5-10.1) Total Bilirubin 0.3 mg/dL (0.2-1.0) Aspartate Amino Transf (AST/SGOT) 64 U/L (15-37) Alanine Aminotransferase (ALT/SGPT) 77 U/L (14-59) Alkaline Phosphatase 98 U/L (46-116) Total Protein 6.9 g/dL (6.4-8.2) Albumin 2.9 g/dL (3.4-5.0) Albumin/Globulin Ratio 0.7 (1.0-1.7) Vitamin B12 Level 1027 pg/mL (247-911) Brief Hospital Course Ms. Medrano is a 62 old [place]inese Beninese male who has quit smoking either 2 weeks or 2 months ago, admitted for acute bronchitis with normal chest x-ray. Stayed tonight and is much better no wheezing. Taking Singulair and Advair at home along with pro-air when necessary. I am Rx Ing Medrol Dosepak and Z-Kj along with refills of Singulair pro-air and Advair per her request Consults performed pulmo, Proc performed none Time spent discharge less than 30 minutes Discharge disposition to home Discharge Information Condition at Discharge: Improved, Stable Follow Up: Weeks (PCP prn) Disposition/Orders: D/C to Home Scheduled Amlodipine Besylate (Amlodipine Besylate) 5 Mg Tablet, 5 MG PO DAILY for HTN, ( Reported) Entered as Reported by: CHELSI HANEY RN on 05/24/181117 Last Taken: UNKNOWN on Unknown Date & Time Last Action: Continued on 05/24 by FRANKY ARTEAGA MD Fluticasone/Salmeterol (Advair 250-50 Diskus) 1 Each Disk.w.dev, 1 PUFF IH BID for COPD MDD 1 for 30 Days Prescribed by: CECELIA JUSTICE on 05/26/18 120 Ranitidine Hcl (Ranitidine Hcl) 75 Mg Tablet, 75 MG PO DAILY for Reflux, ( Reported) Entered as Reported by: CHELSI HANEY RN on 05/24/181118 Last Taken: UNKNOWN on Unknown Date & Time Last Action: Converted on 05/24 by FRANKY ARTEAGA MD Tiotropium [place] (Spiriva) 18 Mcg Cap.w.dev, 18 MCG IH DAILY for COPD, ( Reported) Entered as Reported by: CHELSI HANEY RN on 05/24/181311 Last Taken: UNKNOWN on Unknown Date & Time Last Action: Converted on 05/24 by CHELSI HANEY RN Tiotropium [place] (Spiriva) 18 Mcg Cap.w.dev, 1 CAP IH DAILY for copd, #30 Ref 3 Prescribed by: CECELIA JUSTICE on 05/26/18 1201 [Proair] , 1 SPR IH DAILY for COPD, (Reported) Entered as Reported by: CHELSI HANEY RN on 05/24/181117 Last Action: Converted on 05/24/181315 by CHELSI HANEY RN Scheduled PRN Albuterol Sulfate (Proair Hfa Inhaler) 8.5 Gm Hfa.aer.ad, 2 PUFF INH Q4HRS PRN for SHORTNESS OF BREATH, #1 Prescribed by: TONY SHERIDAN MD on 05/10/16 0035 Last Action: Continued on 05/24/181313 by FRANKY ARTEAGA MD Albuterol Sulfate (Proair Hfa Inhaler) 8.5 Gm Hfa.aer.ad, 1 PUFF INH PRN Q6HRS PRN for SHORTNESS OF BREATH for 30 Days, Ref 0 Prescribed by: CECELIA JUSTICE on 05/26/18 1201 Alprazolam (Alprazolam) 0.25 Mg Tablet, 0.25 MG PO PRN Q6HRS PRN for ANXIETY / AGITATION, #5 Ref 0 Prescribed by: TAWNY CABELLO APRN on 02/25/161956 Last Action: Continued on 05/24/181313 by FRANKY ARTEAGA MD Alprazolam (Alprazolam) 2 Mg Tablet, 2 MG PO BID PRN for ANXIETY / AGITATION, ( Reported) Entered as Reported by: CHELSI HANEY RN on 05/24/181117 Last Taken: UNKNOWN on Unknown Date & Time Last Action: New Order on 05/24 by CHELSI HANEY RN Ibuprofen (Ibu) 800 Mg Tablet, 800 MG PO BID PRN for PAIN, (Reported) Entered as Reported by: CHELSI HANEY RN on 05/24/181311 Last Taken: UNKNOWN on Unknown Date & Time Last Action: New Order on 05/24 by AREN SHAY CHERRIE Y MD May 26, 2018 12:04
[2018-05-26] MEDS: ENOXAPARIN 40 MG/0.4 ML SYRINGE. SQ SCH (15:00)
--- NOTE | 2018-05-26 18:00 | NUR ---
Discharge Note: JOHN MIRZA Discharge instructions and discharge home medications reviewed with patient and a copy given. All questions have been answered and understanding verbalized. The following instructions and handouts were given: BRONCHITIS Discontinued lines and drains: Peripheral IV intact. Patient discharged to Home or Self Care withFamily Membervia Wheelchair
[2018-05-26] MEDS ORDERED: LACTOBACILLUS RHAMNOSUS GG 1 CAPSULE. PO SCH (21:00)
== END 2018-05-26 18:00 | disposition home or self-care (01) | DRG 190 ==
LOC: ER 04:50 → 5 NORTH 07:30
PROVIDERS: ADMIT Internal Medicine; ATTEND Internal Medicine
DX: J44.1 Chronic obstructive pulmonary disease with (acute) exacerbation (principal); J96.00 Acute respiratory failure, unspecified whether with hypoxia or hypercapnia; J44.0 Chronic obstructive pulmonary disease with (acute) lower respiratory infection; E87.6 Hypokalemia; E83.42 Hypomagnesemia; R09.02 Hypoxemia; D64.9 Anemia, unspecified; F17.201 Nicotine dependence, unspecified, in remission; F41.8 Other specified anxiety disorders; G89.29 Other chronic pain; I10 Essential (primary) hypertension; J20.9 Acute bronchitis, unspecified; M19.90 Unspecified osteoarthritis, unspecified site; R74.0 Nonspecific elevation of levels of transaminase and lactic acid dehydrogenase [LDH]; Z82.49 Family history of ischemic heart disease and other diseases of the circulatory system; Z82.5 Family history of asthma and other chronic lower respiratory diseases; Z88.0 Allergy status to penicillin; Z88.8 Allergy status to other drugs, medicaments and biological substances; Z98.51 Tubal ligation status
CPT/HCPCS: 36415; 71045; 80053; 81001; 82550; 82607; 83540; 83550; 83735; 83880; 85025; 87040; 87077; 87205; 87804; 93005; 94640; 94760; 96361; 96365; 96375; J2930; J3370; J3475; J3490; J7030; J7040; J7620; J7626; 99285-25

== ENCOUNTER 2019-02-06 02:19 | Emergency (ER) | payer OTHER ==
[~2019-02-06] VITALS: Ht 157.5 cm; Wt 112.5 kg
[~2019-02-06 02:19] MED LIST changes: +ALPR2TAB5 PO; +AMLO5TAB10 PO; +FLUT1DIS3 IH; +IBUP-577 PO; +PROAIR IH; +RANI-348 PO; +TIOT18CA IH
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
[2019-02-06 02:54] VITALS: BP 117/81
[2019-02-06] MEDS ORDERED: ALPRAZolam 0.5 MG TABLET PO ONE (03:00)
[2019-02-06] MEDS ORDERED: FLUT1DIS3 IH (03:13)
[2019-02-06] MEDS ORDERED: TIOT18CA IH (03:13)
[2019-02-06] MEDS ORDERED: ALBU2.5V8 INH (03:13)
[2019-02-06] MEDS ORDERED: AMLO5TAB4 PO (03:13)
[2019-02-06] MEDS ORDERED: ALPR1TAB6 PO (03:13)
== END 2019-02-06 03:24 | disposition home or self-care (01) ==
LOC: ER 02:19
DX: F41.9 Anxiety disorder, unspecified (principal); M19.90 Unspecified osteoarthritis, unspecified site; J44.9 Chronic obstructive pulmonary disease, unspecified; I10 Essential (primary) hypertension; F32.9 Major depressive disorder, single episode, unspecified; Z88.0 Allergy status to penicillin; Z88.8 Allergy status to other drugs, medicaments and biological substances
CPT/HCPCS: 99284